=== PATIENT | female | born 1950 | race Caucasian/White ===

== ENCOUNTER → 2016-03-25 | Outpatient (CLI) | payer OTHER ==
--- NOTE | 2016-03-25 15:40 | DX ---
Right Foot , 3 weightbearing views History: Follow-up bunionectomy with Iftikhar osteotomy and hammertoe repair, Z09 Comparison: February 25, 2016 Findings: There is increased soft tissue swelling of the foot and first and second toes, greatest karey steve and medially. There is no abnormal bone lucency. The bunionectomy site and osteotomy on either side of the second PIP joint remain sharp. Radiopaque callus is newly forming along the lateral aspec t of the first metatarsal osteotomy site. On the lateral view the osteotomy line of the first metatar aditi is still visible.. Alignment of the first and second rays is stable and anatomic. No evidence for fracture or loosening of compression screws in the distal first and second metatarsal or in a metall ic fusion of the second PIP joint. Impression: Increased soft tissue swelling. Stable alignment. Healing is occurring.
== END ==
LOC: BMCIMAGING 14:16
PROVIDERS: ATTEND Podiatrist Foot & Ankle Surgery
DX: Z09 Encounter for follow-up examination after completed treatment for conditions other than malignant neoplasm (principal); Z98.890 Other specified postprocedural states; M79.89 Other specified soft tissue disorders

== ENCOUNTER → 2016-04-22 | Outpatient (CLI) | payer OTHER | LOC: BMCIMAGING 14:09 | PROVIDERS: ATTEND Podiatrist Foot & Ankle Surgery | DX: Z09 Encounter for follow-up examination after completed treatment for conditions other than malignant neoplasm (principal); Z98.890 Other specified postprocedural states ==

== ENCOUNTER → 2016-05-28 | Outpatient (CLI) | payer OTHER | LOC: CIMAGING 14:42 | DX: Z12.31 Encounter for screening mammogram for malignant neoplasm of breast (principal) | CPT/HCPCS: G0202 ==

== ENCOUNTER → 2016-05-31 | Outpatient (CLI) | payer OTHER | LOC: BMCIMAGING 14:23 | PROVIDERS: ATTEND Podiatrist Foot & Ankle Surgery | DX: Z47.89 Encounter for other orthopedic aftercare (principal); Z98.1 Arthrodesis status ==

== ENCOUNTER → 2017-06-03 | Outpatient (CLI) | payer OTHER, MEDICARE | LOC: CIMAGING 14:45 | PROVIDERS: ATTEND Obstetrics & Gynecology | DX: Z12.31 Encounter for screening mammogram for malignant neoplasm of breast (principal) ==